=== PATIENT | female | born 1940 | race Caucasian/White ===

== ENCOUNTER 2021-06-14 13:07 | Emergency (ER) | payer OTHER ==
[~2021-06-14] VITALS: Ht 160 cm; Wt 50.8 kg
[2021-06-14] MEDS ORDERED: XANAX0.25 MG PO (13:18)
== END 2021-06-14 16:48 | disposition home or self-care (01) ==
LOC: ER 13:07
DX: S01.02XA Laceration with foreign body of scalp, initial encounter (principal); W22.8XXA Striking against or struck by other objects, initial encounter; Y93.89 Activity, other specified; Y92.69 Other specified industrial and construction area as the place of occurrence of the external cause; Y99.8 Other external cause status

== ENCOUNTER 2022-05-26 14:36 | Emergency (ER) | payer OTHER ==
[~2022-05-26] VITALS: Ht 157.5 cm; Wt 52.2 kg
[~2022-05-26 14:36] MED LIST: XANAX0.25 MG PO
[2022-05-26] MEDS ORDERED: PEPCID AC20 MG PO (17:56)
== END 2022-05-26 19:01 | disposition home or self-care (01) ==
LOC: ER 14:36
DX: R12 Heartburn (principal); Z88.0 Allergy status to penicillin; F13.20 Sedative, hypnotic or anxiolytic dependence, uncomplicated

== ENCOUNTER 2022-07-29 05:58 | Emergency (ER) | payer OTHER ==
[~2022-07-29] VITALS: Ht 160 cm; Wt 45.4 kg
[~2022-07-29 05:58] MED LIST changes: +PEPCID AC20 MG PO
== END 2022-07-29 11:31 | disposition home or self-care (01) ==
LOC: ER 05:58
DX: K30 Functional dyspepsia (principal); Z88.0 Allergy status to penicillin

== ENCOUNTER 2023-05-05 11:44 | Emergency (ER) | payer OTHER ==
[~2023-05-05] VITALS: Ht 160 cm; Wt 43.1 kg
== END 2023-05-05 16:46 | disposition home or self-care (01) ==
LOC: ER 11:44
DX: M54.50 Low back pain, unspecified (principal); Z88.0 Allergy status to penicillin
CPT/HCPCS: 72100; 96372; 99284; J1885; J2360